=== PATIENT | male | born 1990 | race Caucasian/White ===

== ENCOUNTER 2025-02-23 00:47 | Day surgery (SDC) | payer BC, SELFPAY ==
--- NOTE | 2025-02-18 12:29 | SUR.PREOP ---
[facility] has started construction of its new state of the art ER which will open Spring 2026. With this, we anticipate parking may be a challenge for some our surgical patients and families. Parking spaces are limited but are available for all Surgical, obstetrics, and ER patients sharing this lot. If you arrive and find you are having a hard time finding a parking space, please note that we understand the challenges, please drive around the hospital and park near Hospital Entrance 1. When you enter this entrance, you can ask a volunteer to direct or take you back to the surgical waiting area to check in. We appreciate everyone?s understanding of these expected challenges while we build for your future. Report to the Outpatient Waiting Room, entrance under the green pavilion located off [address], at time __9am__ on date 02/23/25_. Planned Procedure Time: __11am__. Time changes happen often and if your time is changed the preop area will call you the afternoon before. - You and your visitor will be asked to self-screen and do not enter if you have any COVID symptoms. Please call surgeon if you need to reschedule. - A mask is optional within the hospital at this time. Patients may have clear liquids (water, carbonated beverages, clear teas, apple juice) until 3 hours prior to surgery with a maximum of 20 ounces. - No food from midnight until time of surgery and no smoking, or chewing tobacco (or any form of nicotine). No chewing gum, candy or mints. Take only the following medications with a SIP of water on the morning of surgery: ____none DO NOT STOP ANY OF YOUR OTHER PRESCRIPTION MEDICATIONS PRIOR TO SURGERY EXCEPT THE FOLLOWING Hold all vitamins and supplements for 3 days per anesthesiologist. Medications to discontinue per physician ___n/a Date to take last dose____n/a__ Please no make-up, nail saudi arabian, hairspray, perfume, deodorant, or body powder the day of surgery.? No jewelry (including any body piercings) or valuables the day of surgery, leave them at home.? Please take a shower or bath the night before, or the morning of, surgery with an antibacterial soap.? Wear comfortable, loose fitting clothing.? - Jewelry must be removed prior to entering the operating room.? Rings and piercings that are not removed may be cut off. - The hospital will not accept responsibility for valuables.? - Please leave all valuables, including medications, at home the day of surgery. If you are going home after surgery, a licensed regional driver must drive you home.? - NO public transportation without another adult if you receive anesthesia. - We recommend that an adult stay with you for 24 hours following discharge. - We also recommend that you do not drive, make important decision, drink alcoholic beverages, or take any drugs that were not prescribed by your health care provider for at least 24 hours after your discharge time. Follow any additional instructions given to you from your surgeon. Telephone instructions given to __Tory___and asked if any additional questions and then verbalized understanding. Patient advised to call surgeon office or pre surgery nurse liaison [phone] if any additional questions.
[2025-02-18 12:32] VITALS: BMI 23.8
[2025-02-23] VITALS (9 sets, daily range): BP systolic 95–134; BP diastolic 60–102; PULSE 54–79; RESP 16–20; TEMP 36.1–37.2; O2SAT 100; BMI 23.3
--- OUTSIDE RECORDS SUMMARY | 2025-02-23 00:50 | XMS_ITS | Clinical Summary ---
Author Organization [facility] Address [address] [place] [id number] Care Team Providers Care Beauty Culture Teacher Name Role Phone None, Provider MD Primary Care Provider Unavaila ble Allergies Active Allergy Reactions Criticality Noted Date Comments Beef-Derived Drug Products Anaphylaxis High 01/20/20 22 Wasp Venom Anaphylaxis High 01/19/2022 Medications No known medications Family History Medical History Relation Comments Diabetes Father Asthma Mother Relation Status Comments Father Mother Alive Social History Tobacco Use Types Packs/Day Years Used Date Smoking Tobacco: Never Smokeless Tobacco: Never Alcohol Use Standard Drinks/Week Comments Yes 5 (1 standard drink = 0.6 oz pur e alcohol) Sex and Gender Information Value Date Recorded Sex Assigned at Not on file Legal Sex Male 2:00 PM CDT Gender Identity Not on file Sexual Orientation Not on file Last Filed Vital Signs Vital Sign Reading Time Taken Comments Blood Pressure 157/62 01/19/2022 7:29 PM CDT Pulse 82 01/19/2022 7:29 PM CDT Temperature 36.7 C (98.1 F) 01/19/2022 2:15 PM CDT Respiratory Rate 16 01/19/2022 7:29 PM CDT Oxygen Saturation 97% 01/19/2022 7:29 PM CDT Inhaled Oxygen Concentration - - Weight 79.4 kg (175 lb) 01/19/2022 2:15 PM CDT Height 182.9 cm (6') 01/19/2022 2:15 PM CDT Body Mass Index 23.73 01/19/2022 2:15 PM CDT Plan of Treatment Health Maintenance Due Date Last Done Comments Annual Physical 1992 Hepatitis C 2007 DTaP, Tdap and Td Vaccines ( 1 - Tdap) 2008 Hepatitis B Vaccines (1 of 3 - 19+ 3-dose series) 2008 HPV Vaccines (1 - 3-dose SCD M series) 2016 COVID-19 Vaccine (2 - 2024-2 6 season) 2025 08/15/2020 Influenza Adult (#1) 2025 Hepatitis A Vaccines Aged Out No long er eligible based on patient's age to complete this topic Meningococcal B Vaccine Aged Out No l onger eligible based on patient's age to complete this topic Meningococcal Vaccine Aged Out No nadine pio eligible based on patient's age to complete this topic Pneumococcal Vaccine: Pediat rics (0 to 5 Years) and At-Risk Patients (6 to 49 Years) Aged Out No longer eligi ble based on patient's age to complete this topic RSV Immunizations Under 20 Months Aged Out No longer eligible based on patient's age to complete this topic Insurance [id number] Care Teams Beauty Culture Teacher Relationship Specialty Start Date End Date None, Provider, PCP - General 01/19/22
--- NOTE | 2025-02-23 08:36 | P.HP_ITS ---
History of Present Illness History of Present Illness Consent: Risks, benefits, and alternatives have been discussed and questions answered. Patient agrees to proceed with procedure. Chief complaint: Desire Sterilization Narrative: Sri Mcneil is a 34 year old male who desires permanent sterilization and was recently evaluated in the Urology office for vasectomy. He presents today for vasectomy in the operating room per his preference. He denies any changes passes baseline and is ready for the procedure today. Review of Systems Review of Systems: All systems reviewed & are unremarkable except as noted in HPI and below PMFSH Social History Social History Smoking status: Current every day smoker Tobacco type: e-cigarettes/vaping Drinks per week: 5 Living arrangements: with family Spiritual care concerns: No Meds Home Medications and Allergies Home Medications ?Medication ?Instructions ?Recorded ?Confirmed ?Type No Home Medications 02/18/25 02/18/25 H istory Allergies Allergy/AdvReac Type Severity Reaction Status Date / Time No Known Allergies Allergy Verified 02/18/25 12:31 Exam Const: General: cooperative and healthy appearing HENMT: Head: normal to inspection and atraumatic Ears: hearing grossly normal bilaterally Eyes: Pupils: Equal, round and reactive pupils present EOM: EOMs intact bilaterally Neck: Neck: normal visual inspection and full ROM Chest: Chest palpation & inspection: normal inspection of the chest Resp: Effort & Inspection: normal respiratory effort and able to speak in complete sentences Cardio: Rate: regular rate GI: Inspection: normal to inspection and non-distended : General: Yes deferred Skin: General skin exam: normal color and no rashes or lesions noted Neuro: General: patient oriented x3 Extrem: General: normal to inspection and full ROM Psych: Appearance: grossly normal and well kempt Assessment and Plan Assessment and plan (1) Encounter for sterilization: Code(s): Z30.2 - Encounter for sterilization Status: Acute Assessment and Plan: 34-year-old male who desires elective permanent sterilization Plan - To OR for bilateral vasectomy - Risks, benefits, alternatives reviewed. The patient is amenable to proceed. - Anticipate discharge home following his procedures today
--- NOTE | 2025-02-23 08:36 | WPDHPUPDATE1 ---
History and Physical Update Update Date/Time: 02/23/25 08:36 History and Physical has been reviewed, including an updated exam of the patient. There are NO changes in the patient's condition. Risks, benefits, and alternatives have been discussed and questions answered. Patient agrees to proceed with procedure.
--- NOTE | 2025-02-23 09:16 | P.PNAN_ITS ---
Anes - Initial Pre Proc Eval Procedure: Operation Date: 02/23/25 11:00 Proposed Procedures p Bilateral Vasectomy - J Carlos Reyes MD Date/Time: 02/23/25 09:16 Surgeon: J Carlos Reyes MD Pre Op Diagnosis: Desire Sterilization Patient Data Age: 34 Gender: M Height: 1.83 m Weight: 79.5 kg Allergies Allergy/AdvReac Type Severity Reaction Status Date / Time No Known Allergies Allergy Verified 02/18/25 12:31 Home Medications ?Medication ?Instructions ?Recorded ?Confirmed ?Type No Home Medications 02/18/25 02/18/25 H istory Patient hx anesthesia problems: none Family hx anesthesia problems: none Results Review: All pre-operative results and documents have been reviewed as part of the pre- operative evaluation. [facility] Social History Social History Smoking status: Current every day smoker Tobacco type: e-cigarettes/vaping Drinks per week: 5 Living arrangements: with family Spiritual care concerns: No Anes - Eval Final PreProcedure Day of Procedure 02/23/25 09:16 Patient weight: normal Heart: regular rate and rhythm Lungs: clear to auscultation Airway: Mallampati scale class II Neurological: alert and oriented Last oral intake: >/= 8 hours ASA classification: II Emergent: no Anesthetic plan: proceed Anesthesia type and monitoring: general LMA and standard monitoring Results Review: All pre-operative results and documents have been reviewed as part of the pre- operative evaluation. Informed Consent: The patient's anesthetic plan and its attendant risks and benefits were discussed with the patient/family/POA. Questions were solicited and answers provided to the satisfaction of the patient/family/POA.
[2025-02-23] MEDS: LACTATED RINGERS 1,000 ML 30 ML IV CONT (09:40)
[2025-02-23] MEDS: ceFAZolin 2 GM in SODIUM CHLORIDE 0.9% IV 50 ML 100 ML IVPB (10:57)
--- NOTE | 2025-02-23 11:18 | S_PTH ---
PATIENT: Sri Mcneil LOC: [facility] U#:[id number] AGE/SX: 34/M ROOM: RE02/23/[address]: J Carlos Reyes MD : 1990 BED: DIS: 02/23/2025 SPEC #: [id number] RECD: 02/23/25 12:28 STATUS: CHEN REQ #: [id number] ANNA: 02/23/25 11:[address]: J Carlos Reyes DEPT: [facility] Surgical RECD BY: Debbi Landaverde ENTERED: 02/23/25 12:29 SP TYPE: Surgical OTHR DR: Jorge Arenas MD Tissues: A - Vas Deferens B - Vas Deferens Procedures: Gross Exam Level 1
--- NOTE | 2025-02-23 11:39 | P.OP_ITS ---
Procedure Note - Detailed Date of Procedure 02/23/25 Pre-op Diagnosis Desired Sterilization Post-op Diagnosis Same Procedure Performed 1. Bilateral vasectomy Surgeon J Carlos Reyes MD Anesthesia General Description of Procedure After informed consent had been obtained, the patient was brought back to the o perating theater and placed in supine position on the operating table whereupon anesthesia was induced. Preoperative antibiotics were administered. Patient's genitalia were prepped and draped in standard sterile fashion. All pressure points were padded. Sequential compression devices were on and noted to be functioning. Formal time-out was performed to confirm the correct patient, site, and procedure and all were in agreement to proceed. To begin with, I identified and secured the right vas deferens along the anterior right scrotum above the testicle and instilled 0.25% plain Marcaine overlying the skin for local anesthetic. Next, using the no scalpel technique I used a Adolfo forceps to spread passed the skin layer. Next I used the vas clamp to secure the right vas deferens. The overlying tissue was dissected off. I then used 15 blade to incise the sheath of the vas. Next, I used Adson forceps to further dissected the sheath off of the vas. Two clamps were then placed along the proximal and distal aspects of the dissected vas. A segment of the vas approximately 2 cm long was then cut using Metzenbaum scissors and sent the field as a specimen labeled ?right vas deferens? for pathologic analysis. I then used Bovie electrocautery to cauterize the 2 free ends of the cut vas deferens. 2-0 silk tie was then used to tie off both free ends of the vas underneath the clamps. I then turned my attention to identifying and securing the left vas deferens. I performed a no scalpel technique left-sided vasectomy in the exact same fashion as the right hand side. Afterwards, I delivered both of the vas back into the scrotum and closed the skin entrance site using 3-0 chromic in a single horizontal mattress fashion. Pinpoint Bovie electrocautery was used as needed to obtain hemostasis at the level of the skin. Next, I applied bacitracin ointment over each wound and then placed fluffs and a jockstrap as final dressing. This essentially concluded the case. The patient tolerated the procedure well and there were no immediate complications noted. The patient was awoken from anesthesia and taken to recovery in stable condition. At the conclusion of the case, all sponge, instrument, and sharp counts were correct x2. Disposition: The patient will be monitored in the PACU and be discharged home once clearing PACU protocol. Per the patient's preoperative wishes, no friends/family were contacted to give a postoperative update. The patient was instructed to perform his post vasectomy semen analysis in 4 months and we will follow up with him thereafter to review the results.
== END 2025-02-23 13:12 | disposition home or self-care (01) ==
PROVIDERS: PCP Family Medicine Adolescent Medicine; Visit Provider Urology
PROC: (CPT 55250; principal; 2025-02-23 11:00)
DX: Z30.2 Encounter for sterilization (principal); F17.290 Nicotine dependence, other tobacco product, uncomplicated; Z98.890 Other specified postprocedural states
CPT/HCPCS: 55250; 88300; J0690; A9270; J1100; J2003; J2250; J2405; J2704; J3010; J7120